=== PATIENT | female | born 1940 | race Caucasian/White ===

== ENCOUNTER 2016-12-07 13:29 | Inpatient (IN) | payer MEDICARE, OTHER ==
[~2016-12-07] VITALS: Ht 157.4 cm; Wt 87.1 kg
--- NOTE | ~2016-12-07 | PR ---
[place], [place] PROGRESS NOTE NAME: KAILA CULP UNIT #: [id number] ROOM: 316 DOCTOR: OTIS MARQUES MD BIRTHDATE: [birth year] DOS: 12/10/2016 INTERVAL NOTE CHIEF COMPLAINT: "Morning." SUMMARY OF THE VISIT: The patient was interviewed as she rested quietly in bed. She was pleasant and appropriate to me this morning. Nurses report that she had a fairly decent day, but as the evening progressed, she became much more confused, much more agitated and became verbally and physically aggressive, yelling out, constantly requiring p.r.n. intervention with good results. MENTAL STATUS EXAMINATION: This morning, she is alert and oriented to self, possibly place, but not time. Mood still is labile. Affect is still inappropriate at times. There is no gross mathew or psychosis noted at this point. Memory is very poor. PLAN: I will go ahead and order Ativan 1 mg p.o. at bedtime to head off some of this behavior to see if this can prevent it from occurring, may need to add a small dose of straight Ativan in the morning to sustain efficacy. Engage in individual and villasenor milieu activity, returning to [facility] when stable. OTIS MARQUES MD CM:PNTRANS [id number] OTIS MARQUES MD 12/11/16 0049 interface
--- NOTE | ~2016-12-07 | CON ---
[place], [place] REPORT OF CONSULTATION NAME: KAILA CULP [facility] #: [id number] UNIT #: [id number] ROOM: 316 DOCTOR: THAO WoodyTIM BIRTHDATE: [birth year] DOS: 12/09/2016 WOUND CARE CONSULTATION HISTORY OF PRESENT ILLNESS: This is a 76-year-old female with a history of bipolar disorder and dementia. The patient comes from a senior living and was admitted for a brief psychotic episode. She has a history of CVA and a PEG tube, but is also able to take p.o. She has had a nonhealing sacral wound for almost 2 years now. I got some information from her who I spoke to at length regarding the wound. Approximately 15 months ago, the patient had a surgical flap done, which failed and was dehisced after the sutures were removed and there was a postoperative infection. She has had associated osteomyelitis at least twice that he is aware of that, she has been treated with heavy antibiotics for 9 weeks at least 2 times, one time he is aware of MRSA infection. She has had debridement done in the past as well and antibiotics from what the patient states. I did ask her specifically if they have ever tried a wound VAC and she says they have tried it and it was not very successful and she believes at that time, she was in a state of agitation, so it is not quite clear why the VAC was discontinued, but it could have been that she was not cooperative with it. He does state that she is currently nonambulatory and in a bed most of the time, not even in a wheelchair secondary to the ulcer. She is supposed to have a wedge for offloading, but many times she has got into the room and she is not being offloaded, according to the patient's . Back in 2010, she had a severe CVA with left hemiparesis. During that time, she apparently improved quite a bit and was able to ambulate, but subsequently since then she has had become weaker and is now currently nonambulatory. She does have a history of anxiety. She has not had any recent physical therapy for some time, but has had some occupational therapy. She apparently sees a wound care doctor at the senior living who saw her approximately 3 weeks ago, who felt that they knew that the wound was deep, but it was according to the wound care doctor, slowly healing. The recalls the patient trying a trial of hyperbaric oxygen therapy, but due to her mental status and anxiety, she was unable to tolerate it. He is also researching some infrared treatments for wound care in the [place] area, but has not decided whether to pursue this avenue. PAST MEDICAL HISTORY: Significant for anxiety, bipolar disorder, C. diff colitis, chronic kidney disease stage 3, CVA, depression, hyperlipidemia, hypertension, neurogenic bladder, osteomyelitis, paranoid behavior, sacral decubitus ulcer stage 4, vascular dementia. She is status post PEG tube placement. She has also been in and out of multiple rehabilitation places, specifically for the ulcer, she recalls stay at [facility] for particular wound care that she is aware of. SOCIAL HISTORY: She does not drink or smoke. FAMILY HISTORY: Unknown. ALLERGIES: CLINDAMYCIN. CURRENT MEDICATIONS: That she has been ordered are as follows: Septra 1 tablet [place], [place] REPORT OF CONSULTATION NAME: KISHAUSMANKAILA D UNIT #: [id number] ROOM: [facility] DOCTOR: TIM OSUNA M.D. BIRTHDATE: [birth year] p.o. b.i.d.; Depakene 500 p.o. t.i.d. or through the PEG tube; MiraLax 17 grams Wednesday, Wednesday, Wednesday; Calazime b.i.d. topically; vitamin D 1000 units daily; thiamine 100 mg daily; Exelon 13.3 mg daily; Theragran 1 tablet daily; Plavix 75 daily; atenolol 50 mg b.i.d.; [place] 5/325 one tablet b.i.d.; clonidine 0.1 q. 8 hours; DuoNeb 3 mL q. 6 hours p.r.n.; acetaminophen 650 q. 4 hours p.r.n.; Namenda 10 mg p.o. b.i.d.; Nuedexta 20/10 mg p.o. b.i.d.; milk of magnesia p.o. q. 12 p.r.n.; Geodon 10 mg q. 4 hours IM p.r.n., Ativan 1 mg q. 4 hours p.r.n. REVIEW OF SYSTEMS: Unobtainable. She is currently on PEG tube feeding. PHYSICAL EXAMINATION: VITAL SIGNS: Her temperature is 99.3, pulse of 64, respirations 18, blood pressure is 132/62. GENERAL: This is an elderly female lying in bed, somewhat lethargic, in no acute distress. When asked specifically if she had any pain around her wound when we pressed on it, she did not complain of pain. She did, however, moan when we turned her over to examine the wound. NECK: There is no JVD. LUNGS: Clear to auscultation anteriorly. CARDIOVASCULAR: S1, S2, regular rate and rhythm. ABDOMEN: Soft. EXTREMITIES: She has no calf tenderness. SKIN: She has open wound on the sacral coccyx area. The wound is measuring 2 x 1 x 3.3 cm in depth. There is undermining and a tunnel. The undermining was noted to be more in the 6-9 o'clock position with a tunnel in the 6 o'clock position of almost 4 cm. I do not appreciate any cellulitis, purulence or odor at this time. LABORATORY DATA: Her white count is 9.6, hemoglobin is 14, platelets are 259,000. Sodium is 133, chloride is 94, BUN is 17, creatinine is 0.69. Albumin is 3, triglycerides are 159, cholesterol is 203. Urinalysis shows positive nitrites, 3+ leukocyte esterase, wbc's 16-20, 1+ bacteria. Urine cultures, heavy gram-negative bacilli. Apparently, wound culture was done as well, which showed many white blood cells and light gram-negative bacilli but nothing is coming up yet as far as the organism. ASSESSMENT AND PLAN: Chronic nonhealing stage 4 pressure ulcer in a patient, who is markedly immobile, debilitated. She has had what sounds like multiple courses of IV antibiotics for osteomyelitis. She has had surgical intervention, which has failed and continues to have a very large deep wound. I do not appreciate bone on examination actually; when probing the wound, I did not see or feel bone. However, she may have some chronic osteomyelitis present, which is contributing to poor wound healing. I would recommend trying to get an x-ray of the area if possible. If it can be done at the bedside that would be good and then they were using Aquacel AG ribbon to the wound base. I would continue with this for antibacterial purposes and have them use a foam on top of that and have them change it on a daily basis or every other day. Notes did mention that there was some purulent material noted. I did not see this; the drainage that was noted on her pad was clear serous. It does not appear to be acutely [place], [place] REPORT OF CONSULTATION NAME: KAILA CULP UNIT #: [id number] ROOM: 316 DOCTOR: TIM OSUNA M.D. BIRTHDATE: [birth year] infected clinically at this point. At some point, we may want to consider a wound VAC due to the depth of the wound; however, according to the , apparently wound VAC was tried in the past without success and the patient was somewhat agitated during this treatment. It is not clear if the wound VAC contributed to part of the agitation or due to her agitation. The wound VAC was difficult to place, not quite clear, but we may want to consider that in the future as a trial. I did speak to the and at this point, I would recommend just to continue with the current dressings that they have been using in the senior living and he may want to consider following up in the wound clinic on an outpatient basis. Thank you for this consult ADDENDUM I just wanted to mention that I spoke with the regarding the wound and my concern that it has been open for so long and the likelihood that it would heal with just standard wound care is slim. Surgical consultation with the plastic surgeon at some point may be appropriate and he seems to be aware of this. He did state that the wound care doctor that saw his recently felt that the wound was slowly healing. So, in the meantime, we will continue with the current orders for now. I did go ahead and order an x-ray to be done of the wound. It is difficult for me to say if this is healing or not; since this patient is unfamiliar to me. TIM OSUNA MD CM:CONSTR:REPORT OF CONSULTATION 1513 12/15/16 0924 interface
--- NOTE | ~2016-12-07 | PR ---
[place], [place] PROGRESS NOTE NAME: KAILA CULP UNIT #: [id number] ROOM: 316 DOCTOR: OTIS MARQUES MD BIRTHDATE: [birth year] DOS: 12/09/2016 INTERVAL NOTE CHIEF COMPLAINT: "Oh, is it breakfast time now." SUMMARY OF THE VISIT: The patient was interviewed in her room where she rested quietly in bed. She was awake as I entered the room and engaged in brief superficial conversation. She was pleasant and offered no complaints. She remains grossly confused; however, stating that she has been in the hospital for several weeks now. MENTAL STATUS EXAMINATION: This morning, she is alert and oriented to person, possibly place, certainly not time. Mood this morning was fairly euthymic, although nurses report, she continues to exhibit marked mood swings and crying out throughout the day. There was no overt mathew or hypomania noted. There are no overt delusions or paranoia noted. Short-term memory was exceedingly poor. PLAN: Her valproic acid level obtained yesterday morning, was therapeutic, but low least so at 62.7. I see no side effects from the Depakote itself, so go ahead and bring the dose from 250 mg twice daily and 500 mg at bedtime to a total of 500 mg 3 times daily. I will recheck another valproic acid level in 2 days to attempt to bring it in the range of about 80-90. We will continue to engage in individual and villasenor milieu activity with the ultimate plan to return back to [facility] in [place], [place]. OTIS MARQUES MD CM:PNTRANS [id number] [id number] OTIS MARQUES MD 12/10/16 0129 interface
--- NOTE | ~2016-12-07 | WRIGHTHP ---
[place], [place] PATIENT HISTORY AND PHYSICAL EXAM [id number] UNIT #: [id number] ROOM: 316 DOCTOR: OTIS MARQUES MD BIRTHDATE: [birth year] DOS: 12/07/2016 CHIEF COMPLAINT: "I don't know what I am doing here." HISTORY OF PRESENT ILLNESS: This is a 76-year-old white female known to me from her stay at [facility] in [place], [place]. The patient presents now with significant mood lability and agitation. She has been verbally and physically aggressive. She has been yelling out at times nonstop to the point of disrupting the entire villasenor milieu. Attempts to adjust her medications have been unsuccessful, and her behavior has escalated to the point where she is representing a significant risk of harm to self and others. She is admitted now to rule out organic factors and attempt to stabilize on medication. PAST MEDICAL HISTORY: Remarkable for a long history of bipolar disorder, chronic kidney disease stage 3A, CVA, hyperlipidemia, hypertension, neurogenic bladder, osteomyelitis, sacral decubiti stage 4, vascular dementia and a history of C. diff colitis. MENTAL STATUS: The patient is alert and oriented with significant mood gaps. Mood does seem to be labile. Her responses tended to be short and simple and at times inappropriate. She was rather labile at times. There was no overt auditory or visual hallucinations; however, there was no shahbaz mathew. Short term memory is exceedingly poor. DIAGNOSIS: Bipolar type 1, mixed. PLAN: I have started her on Depakote and maintained her on her Nuedexta for pseudobulbar affect. We will engage in individual and villasenor milieu activity with the ultimate plan to return back to [facility] when psychiatrically stable. OTIS MARQUES MD CM:HISPHYS:PATIENT HISTORY AND PHYSICAL EXAMINATION 9 9 OTIS MARQUES MD 12/08/16 08 interface
[2016-12-07] MEDS ORDERED: MIRALAX POWDER17 G1 PEG (13:32)
[2016-12-07] MEDS ORDERED: TYLENOL325 M1 PO (13:33)
[2016-12-07] MEDS ORDERED: RIVASTIGMINE TAR6 M1 PO (13:34)
[2016-12-07] MEDS ORDERED: NAMENDA-28 PO (13:36)
[2016-12-07] MEDS ORDERED: VITAMIN D1000 IU PO (13:37)
[2016-12-07] MEDS ORDERED: ATIVAN1 MG PO (13:40)
[2016-12-07] MEDS ORDERED: Haldol Concen2 MG/ML PO (13:42)
[2016-12-07] MEDS ORDERED: CEROVITE SENIOR1 TA1 PO (13:53)
[2016-12-07] MEDS ORDERED: ATENOLOL50 M1 PO (13:54)
[2016-12-07] MEDS ORDERED: PLAVIX75 M1 PO (13:55)
[2016-12-07] MEDS ORDERED: NATURE'S BLEND100 M2 PO (13:55)
[2016-12-07] MEDS ORDERED: NORCO 5-325 TA1 EACH PO (13:56)
[2016-12-07] MEDS ORDERED: DEPAKENE250 MG/5 M PEG (13:59)
[2016-12-07] MEDS ORDERED: ARGIMENT POWDE1 EACH PEG (14:01)
[2016-12-07] MEDS ORDERED: CLONIDINE0.2 MG PO (14:03)
[2016-12-07] MEDS ORDERED: DUONEB 3 MG/3 ML3 M1 INH (14:04)
[2016-12-07 21:25] VITALS: BP 157/63
[2016-12-07 22:30] VITALS: BP 157/63
[2016-12-08 01:44] LABS: BILIRUBIN NEGATIVE (NEGATIVE); BLOOD TRACE-INTACT (NEGATIVE); CLARITY CLEAR (CLEAR); COLOR YELLOW (YELLOW); GLUCOSE NEGATIVE (NEGATIVE); KETONE NEGATIVE (NEGATIVE); LEUKO ESTERASE 3+ (NEGATIVE); NITRITE POSITIVE (NEGATIVE); PROTEIN NEGATIVE (NEGATIVE); SPECIFIC GRAVITY <= 1.005 (1.005-1.030); UROBILINOGEN 0.2 E.U./dl (0.2-1.0)
[2016-12-08 01:54] LABS: BACTERIA 1+; URINE REFLEX COMMENT YES (NO); WBC 16-20 wbc/hpf (0-5)
[2016-12-08 06:49] LABS: BASO # 0.1 10*3/uL (0.0-0.1); BASO % 0.5 % (0.0-1.0); EOS # 0.2 10*3/uL (0.0-0.4); EOS % 1.7 % (1.0-4.0); HEMATOCRIT 42.6 % (37.0-47.0); HEMOGLOBIN 14.5 g/dl (12.0-16.0); IG # 0.3 10*3/uL (0.0-0.1); LYMPH # 2.8 10*3/uL (1.3-4.4); LYMPH % 29.2 % (27.0-41.0); MEAN CELL VOLUME 91.2 fl (81.0-99.0); MEAN PLATELET VOLUME 9.3 fl (9.6-12.3); MONO # 1.2 10*3/uL (0.1-1.0); MONO % 12.6 % (3.0-9.0); NEUT # 5.1 10*3/uL (2.3-7.9); NEUT % 53.4 % (47.0-73.0); PLATELET COUNT AUTOMATED 259 10*3/uL (130-400); RED BLOOD COUNT 4.67 10*6/uL (4.10-5.10); WHITE BLOOD COUNT 9.6 10*3/uL (4.8-10.8)
[2016-12-08 07:26] LABS: ALKALINE PHOSPHATASE 79 U/L (45-117); BILIRUBIN, TOTAL 0.4 mg/dl (0.2-1.0); BUN 17 mg/dl (7-24); CARBON DIOXIDE 30 mmol/L (21-32); CHLORIDE 94 mmol/L (98-107); CHOLESTEROL 203 mg/dL (<200); EST GLOM FILT AFRICAN AMERICAN > 60 ml/min; GLUCOSE 72 mg/dL (65-99); HDL CHOLESTEROL 63 mg/dl (40-60); LDL CHOLESTEROL 108 mg/dL (9-159); POTASSIUM 4.2 mmol/L (3.5-5.1); SGOT/AST 14 IU/L (3-35); SGPT/ALT 10 U/L (12-78); SODIUM 133 mmol/L (136-145); TRIGLYCERIDES 159 mg/dl (<150); VLDL CHOLESTEROL 32 mg/dL (6-40)
[2016-12-08 08:00] VITALS: BP 139/67
[2016-12-08 08:21] LABS: VITAMIN D, 25-HYDROXY 32.9 ng/mL (30-100)
[2016-12-08 20:00] VITALS: BP 138/78
[2016-12-09 08:16] VITALS: BP 132/62
[2016-12-09 19:40] VITALS: BP 140/72
[2016-12-10 07:25] VITALS: BP 102/51
[2016-12-10 07:45] LABS: HEMATOCRIT 43.8 % (37.0-47.0); HEMOGLOBIN 14.1 g/dl (12.0-16.0); MEAN CELL VOLUME 95.4 fl (81.0-99.0); MEAN CORPUSCULAR HGB 30.7 pg (27.0-31.0); MEAN CORPUSCULAR HGB CONC 32.2 g/dl (33.0-37.0); MEAN PLATELET VOLUME 9.1 fl (9.6-12.3); PLATELET COUNT AUTOMATED 295 10*3/uL (130-400); RED BLOOD COUNT 4.59 10*6/uL (4.10-5.10); RED CELL DISTRI WIDTH 13.2 % (0-14.5); WHITE BLOOD COUNT 11.3 10*3/uL (4.8-10.8)
[2016-12-10 08:15] LABS: LYMPHOCYTE # 3.5 10*3/uL (1.3-4.4); METAMYELOCYTES 2 % (0-0); MONOCYTE # 0.7 10*3/uL (0.1-1.0); MYELOCYTES 3 % (0-0); NEUTROPHIL # 6.6 10*3/uL (2.3-7.9); NEUTROPHILS 58 % (47-73); PLATELET SUFFICIENCY NORMAL (NORMAL); TOTAL CELLS COUNTED 100 #CELLS
[2016-12-10 08:25] LABS: CARBON DIOXIDE 30 mmol/L (21-32); CHLORIDE 97 mmol/L (98-107); GLUCOSE 132 mg/dL (65-99); POTASSIUM 3.6 mmol/L (3.5-5.1); SODIUM 137 mmol/L (136-145)
[2016-12-10 08:28] LABS: BUN 25 mg/dl (7-24); EST GLOM FILT AFRICAN AMERICAN > 60 ml/min
[2016-12-10 09:00] VITALS: BP 108/58
[2016-12-10] MEDS ORDERED: CLONIDINE HCL0.1 MG PO ×2 (11:06→13:30)
[2016-12-10] MEDS ORDERED: SMZ-TMP 400 MG-1 TAB PO (11:36)
[2016-12-10] MEDS ORDERED: EXEL13.31 T ×2 (11:47→13:31)
[2016-12-10] MEDS ORDERED: DEPAKENE250 MG/5 M PO (11:53)
[2016-12-10] MEDS ORDERED: ATIVAN1 MG PO ×2 (11:54→13:32)
[2016-12-10] MEDS ORDERED: NAMENDA10 MG PO (11:55)
[2016-12-10] MEDS ORDERED: NEUDEXT PEG ×2 (11:58→13:34)
[2016-12-10] MEDS ORDERED: DEPAKENE S250 MG/5 M PO ×2 (12:00→13:35)
[2016-12-10] MEDS ORDERED: BACTRIM 400 MG-1 TAB PO (13:19)
[2016-12-10] MEDS ORDERED: POLYETHYLE17 GM/Dose PO (13:20)
[2016-12-10] MEDS ORDERED: VITAMIN D1000 IU PO (13:21)
[2016-12-10] MEDS ORDERED: ACETAMINOPHEN325 M2 PO (13:21)
[2016-12-10] MEDS ORDERED: CEROVITE SENIOR1 TA1 PO (13:22)
[2016-12-10] MEDS ORDERED: ATENOLOL50 M1 PO (13:23)
[2016-12-10] MEDS ORDERED: CLOPIDOGREL75 MG PO (13:23)
[2016-12-10] MEDS ORDERED: NATURE'S BLEND100 M2 PO (13:24)
[2016-12-10] MEDS ORDERED: HYDROCODONE BIT1 T11 PO (13:24)
[2016-12-10] MEDS ORDERED: DUONEB 3 MG/3 ML3 M1 INH (13:27)
[2016-12-10] MEDS ORDERED: MEMANTINE HCL10 MG PO (13:33)
== END 2016-12-10 12:10 | disposition short-term general hospital (02) | DRG 885 ==
LOC: 3N 13:29
PROVIDERS: Internal Medicine; Psychiatry & Neurology Psychiatry
DX: F31.9 Bipolar disorder, unspecified (principal); L89.154 Pressure ulcer of sacral region, stage 4; E46 Unspecified protein-calorie malnutrition; F01.51 Vascular dementia, unspecified severity, with behavioral disturbance; E67.8 Other specified hyperalimentation; E87.1 Hypo-osmolality and hyponatremia; N18.3 Chronic kidney disease, stage 3 (moderate); M86.60 Other chronic osteomyelitis, unspecified site; F23 Brief psychotic disorder; N30.01 Acute cystitis with hematuria; F41.9 Anxiety disorder, unspecified; F22 Delusional disorders; N31.9 Neuromuscular dysfunction of bladder, unspecified; I12.9 Hypertensive chronic kidney disease with stage 1 through stage 4 chronic kidney disease, or unspecified chronic kidney disease; E78.5 Hyperlipidemia, unspecified; F01.50 Vascular dementia, unspecified severity, without behavioral disturbance, psychotic disturbance, mood disturbance, and anxiety; Z88.1 Allergy status to other antibiotic agents; Z79.899 Other long term (current) drug therapy; Z86.73 Personal history of transient ischemic attack (TIA), and cerebral infarction without residual deficits; Z68.36 Body mass index [BMI] 36.0-36.9, adult

== ENCOUNTER 2016-12-13 11:12 | Inpatient (IN) | payer MEDICARE, OTHER ==
--- NOTE | ~2016-12-13 | PR ---
[place], [place] PROGRESS NOTE [id number] UN[facility] #: [id number] ROOM: 316 DOCTOR: EVELYNE CUNNINGHAM BIRTHDATE: [birth year] DOS: 12/17/2016 SUMMARY OF VISIT: The patient was assessed in her room where she was lying in bed, sleeping. She just received her vital signs, which were within normal limits. The patient continues to have pain in the coccyx area, sacral area, limited conversation again in the morning, talking to the villasenor milieu, she does become more alert, oriented throughout the late morning, afternoon and even though sometimes she is sleeping in her chair, she readily awakes, is bright, engages in conversation. MENTAL STATUS: She is alert and oriented to person, place, I do not know about time. Mood trending towards euthymic, still on the depressed side and still having the chronic pain issues. No overt signs of auditory or visual hallucinations, delusions or paranoia, mathew, or hypomania. PLAN: I am going to go ahead and bump up per Dr. Ramirez's notes from 2 days ago her Cymbalta. The goal is to eventually gradually increase her to 90 to 120 mg total every day to maximize the benefits of relieving her pain, decreasing anxiety, improving her mood, so I will change her Cymbalta to 30 mg in the morning and 60 mg at night and see how she does on this new dose. Will continue to engage in individual and villasenor milieu therapy with the plan to discharge once stable. TERRY CUNNINGHAM CNP CM:PNTRANS [id number] EVELYNE CUNNINGHAM 12/17/16 2318 interface
--- NOTE | ~2016-12-13 | PR ---
[place], [place] PROGRESS NOTE [id number] #: [id number] ROOM: 316 DOCTOR: EVELYNE CUNNINGHAM BIRTHDATE: [birth year] DOS: 12/16/2016 CHIEF COMPLAINT: "Oh god." SUMMARY OF VISIT: The patient was assessed in her room where she was lying in bed. She had her eyes closed initially, I introduced myself, she did not open her eyes, I continued talking. Once I said name, she said, "oh god," but not in a painful way, just like what she wanted. I can see from nurses' notes that she refused to keep the wedge underneath her last night. She kept moving herself back on to her back being that she has sacral issues. MENTAL STATUS: She is alert and oriented to person, place. I do not know about time. Mood, I would say it is still depressed, still having some chronic pain issues. There is no mathew or hypomania. No overt signs of auditory or visual hallucinations, delusions or paranoia. PLAN: Dr. Ramirez increased her Cymbalta yesterday. I want to see how she does over the next 24 hours and then I will continue to titrate that up. His note does state that the goal is to bring the dose gradually up to the 90-120 mg every day and to maximize the benefits of relieving pain, decreasing anxiety, improving her mood. Let me see how she does over the next 24 hours and I will plan bumping up her Cymbalta tomorrow. We will try to engage in individual and villasenor milieu therapy with the plan to discharge when stable. TERRY CUNNINGHAM CNP CM:PNOTTO 2337 EVELYNE CUNNINGHAM 12/16/16 2338 interface
--- NOTE | ~2016-12-13 | WRIGHTHP ---
[place], [place] PATIENT HISTORY AND PHYSICAL EXAM NAME: [facility]ULP [id number] UNIT #: [id number] ROOM: 316 DOCTOR: OTIS MARQUES MD BIRTHDATE: [birth year] DOS: 12/14/2016 CHIEF COMPLAINT: "I don't know, when do I get to go home." SUMMARY OF THE VISIT: The patient was interviewed as she rested quietly in bed. HISTORY OF PRESENT ILLNESS: This is a 76-year-old female known to me from [facility] in [place], [place] as well as several admissions here to the [facility]. She had initially presented to the hospital with a great mood lability and agitation. She had been verbally and physically aggressive, yelling out nonstop at times to the point, where she was disruptive to the entire villasenor milieu. Attempts to adjust her medications were unsuccessful and she was ultimately admitted here to the [facility] for further evaluation; however, the patient upon admission was found to have a significant UTI as well as an infected decubiti that also resulted in osteomyelitis of the sacrum. Because of this, she was transferred briefly to the medical floor for further stabilization. However, while on the medical floor, she continued to yell out and was very disruptive there, so it was felt that a further psychiatric evaluation was warranted. PAST MEDICAL HISTORY: Remarkable for a long history of bipolar disorder, chronic kidney disease stage 3, CVA, hyperlipidemia, hypertension, neurogenic bladder, osteomyelitis, sacral decubiti, stage 4, vascular dementia and a history of C. diff colitis. MENTAL STATUS EXAMINATION: This morning, the patient is alert and oriented to person, possibly place, but not time. Mood actually was fairly bright, and she was minimizing of all symptoms this morning; however, she does have these episodes of extreme mood lability and agitation that occur periodically and without warning. There was no mathew or hypomania at the point of my evaluation this morning, nor was there any auditory or visual hallucinations. Short-term memory was poor, otherwise she was intact. DIAGNOSIS: Bipolar type 1, mixed, and vascular dementia. PLAN: I will go ahead and discontinue her Nuedexta and start her on Cymbalta 30 mg at bedtime. Given the severity of her decubiti, I do question whether pain is behind some of her yelling out, although when questioned about it this morning, she minimized pain and stated that she was fine. I will plan to bring the Cymbalta up to a dose in the range of 60-120. Valproic acid level is barely therapeutic at 58.2, may need to adjust this accordingly. We will attempt to engage her in individual and villasenor milieu activity with the ultimate plan to send back to [facility] when stable. [place], [place] PATIENT HISTORY AND PHYSICAL EXAM NAME: KISHAUSMANKAILA D UNIT #: [id number] ROOM: [facility] DOCTOR: OTIS MARQUES MD BIRTHDATE: [birth year] OTIS MARQUES MD CM:HISPHYS:PATIENT HISTORY AND PHYSICAL EXAMINATION 6 3 OTIS MARQUES MD 12/14/1634 interface
--- NOTE | ~2016-12-13 | PR ---
[place], [place] PROGRESS NOTE NAME: KAILA CULP [facility] #: [id number] UNIT #: [id number] ROOM: 316 DOCTOR: THAO WoodyTIM BIRTHDATE: [birth year] DOS: 12/14/2016 SUBJECTIVE: I was asked to see the patient again regarding wound care orders, the patient was just discharged from the medical floor back to [facility] for further stabilization. The patient had been initially seen at [facility], then was transferred to the medical floor for concerns of her sacral stage IV ulceration and urinary tract infection. She was seen both by Infectious Disease, Orthopedics, as well as General Surgery. Imaging studies of the CT pelvis was possible abscess formation distal coccyx, distal tip focal bone lysis with adjacent phlegmonous inflammatory mass, possible abscess formation. It was felt at that time, the patient was not a surgical candidate. Her ulcer remains quite large and complicated. Conservative treatment with antibiotics per Infectious Disease was recommended as well as local wound care. It was also mentioned that on several occasions, the patient was noted to have stool contaminating the periwound area and the staff does report this; she has had multiple bouts of loose stool. Apparently, was given MiraLax for constipation. So this definitely remains a challenge. The staff also reports that she despite being turned on the side that the patient goes back continually, wants to lay back her on her back side. Even with the wedge, which helps prevent turning completely supine, she still seems to be putting pressure on that area. Since the patient was transferred back to [facility], she is apparently not complaining of any pain at the present time. According to the staff, she does not mention any specific complaint of pain near the wound. She remains to be a total care for all of her ADLs. She is a Chayo lift when the patient is moving out of the bed and is not felt to be a candidate for OT. The patient currently is lying in bed in no acute distress. When asked specifically if she has any pain, she denies any pain at the present time. PHYSICAL EXAMINATION: VITAL SIGNS: Her temperature is 98.4, pulse of 94, respirations 20, blood pressure is 122/57. BACK: The patient was turned over with the help of staff and had right below the dressing, there was fecal incontinence noted. This was wiped away before the packing was removed. The packing was removed and there is some bloody drainage noted. The base of the wound looks fairly clean; however, the wound margins are definitely seem to be bigger according to my measurements. The depth appears to be about 5 cm and there is undermining pretty much throughout 3-12 o'clock position. There is a large undermined area tunnel noted at the 4-5 o'clock position that goes down about 6 cm almost. The patient had a white count of 13.8, a hemoglobin of 14, and platelets of 315. BUN was 28, creatinine is 1.27. ASSESSMENT AND PLAN: Stage IV pressure ulcer, which definitely appears to be worsening as far as the margins go. There is increased bloody drainage. There is no obvious odor or cellulitis noted. I am concerned about the increasing margins of the wound, which I believe are multifactorial. Specifically, the patient does not seem to be keeping pressure off of the area, despite being positioned on her side. Everytime I have gone into see her, she has been on her backside, so she does turn herself over. Even with the wedge, it is not preventing her from going back on her backside. There is stool incontinence, which may be contributing to contamination. There is concern of possible [place], [place] PROGRESS NOTE NAME: KAILA CULP UNIT #: [id number] ROOM: [facility] DOCTOR: TIM OSUNA M.D. BIRTHDATE: [birth year] ongoing chronic osteomyelitis, possible inflammatory process versus abscess noted on CT scan, which is also contributing to poor wound healing. Offloading is definitely a challenge as well. Despite orders to not have any direct pressure to the wound, everytime I have gone in to see the patient, she has been completely on her backside. Even with the wedge, which has always been there, it is not preventing her from putting direct pressure on this wound, so this is definitely a challenge. Other support services may be considered; however, I think are limited on what can be provided in the U unit so I can discuss with a staff regarding if there are any other support services that can be requested for her; however, in the past was told that no other support services are available on the U unit. Ideally, would recommend an air fluidized bed if available. I believe that this is not available on the [facility] nor have I seen it being utilized in this hospital. TIM OSUNA MD CM:PNTRANS 1514 1030 TIM OSUNA M.D. 12/15/16 1141 interface
--- NOTE | ~2016-12-13 | PR ---
[place], [place] PROGRESS NOTE NAME[id number] UNIT #: [id number] ROOM: 316 DOCTOR: OTIS MARQUES MD BIRTHDATE: [birth year] DOS: 12/15/2016 CHIEF COMPLAINT: "Good morning." SUMMARY OF THE VISIT: The patient was interviewed as she rested quietly in bed. She was not yelling out or moaning in anyway. As I approached, she was awake and she engaged in eye contact and also wished me good morning. She minimized any issues, stating that she was not in pain, and that she had slept well and was ready for breakfast. Nurses report that overall there has been less mood lability and left yelling out. MENTAL STATUS: She is alert and oriented to self, place, but not time. Mood still does seem to be somewhat depressed, and there is some anxious overtones. She does tend to minimize overall. There is no hypomania or mathew. There are no overt auditory or visual hallucinations. No delusions, no paranoia are present. Short-term memory has gaps, otherwise she is intact. PLAN: I will increase her Cymbalta from 30 mg at nighttime to 30 mg twice daily. I will attempt to bring the dose gradually to a dose range of 90-120 mg daily to attempt to get maximum benefit in relieving pain, decreasing anxiety and improving mood. When stable, we will discharge her back to [facility]. OTIS MARQUES MD CM:PNTRANS [phone] OTIS MARQUES MD 12/16/16 0139 interface
--- NOTE | ~2016-12-13 | DS ---
[place], [place] DISCHARGE SUMMARY [id number] UNIT #: [id number] ROOM: 316 DOCTOR: OTIS MARQUES MD BIRTHDATE: [birth year] DOS: 12/18/2016 CHIEF COMPLAINT: "I do not know when do I get to go home." HISTORY OF PRESENT ILLNESS: This is a 76-year-old white female known to me from her stay at [facility] in [place], [place] as well as several admissions here to the [facility]. She had initially presented to the Behavioral Healthcare unit with a great deal of mood lability and agitation. She had been yelling out almost nonstop through day and night disrupting the entire villasenor milieu. She was verbally and physically aggressive to other patients and staff. Attempts to adjust her medicines while at the long-term care facility were unsuccessful and she was ultimately admitted to the U for further evaluation and stabilization; however, upon admission, she was found to have a significant UTI as well as an infected decubiti resulting in osteomyelitis of the sacrum. Because this began to deteriorate, it was felt that she required inpatient medical stabilization first and she was sent to the medical floor for further stabilization. While on the medical floor, her psychiatric symptomatology continued to flourish and she was wildly labile, yelling nonstop, requiring frequent PRNs. Once medically stabilized, it was felt that further psychiatric intervention was warranted and she was brought back to the U. PAST MEDICAL HISTORY: Remarkable for a long history of bipolar disorder, chronic kidney disease stage 3, CVA, hyperlipidemia, hypertension, neurogenic bladder, osteomyelitis, a stage 4 sacral decubiti vascular dementia and a recent history of C. diff. SUMMARY OF THE HOSPITAL COURSE: The patient was readmitted to the Behavioral Health Care Unit. At this point, her Nuedexta was discontinued due to ineffectiveness and she was started on Cymbalta 30 mg at bedtime. Nursing did believe that much of her yelling out was pain related even though the patient herself consistently reported no pain. Nurses reported that her yelling seem to pea and flow around periods of care or when she seemed to be very distraught because of her overall pain level. Cymbalta was initiated at a dose of 30 mg at night, increased to 60 mg at night and then subsequently stabilized out at 30 mg in the morning and 60 mg at night. With this medication, the patient did seem to improve and her overall disposition brightened. She was sleeping much better, eating much better and was able to engage in meaningful conversation without these long periods of yelling and without exhibiting mood lability. She tolerated the Cymbalta well. There was no sedation, somnolence, or any other side effects noted. The patient had improved sufficiently from a psychiatric standpoint to return back to [facility] where I will follow her upon her return there. FINAL DIAGNOSES: Major depression, recurrent and vascular dementia. MENTAL STATUS AT DISCHARGE: The patient was alert and oriented to person, possibly place, not necessarily time. Mood was strongly trending towards euthymia. Affect was much more appropriate. There is no hypomania or mathew. There are no auditory or visual hallucinations. No delusions, no paranoia was present. Short term memory had significant gaps, otherwise long-term and [place], [place] DISCHARGE SUMMARY NAME: KAILA CULP UNIT #: [id number] ROOM: [facility] DOCTOR: OTIS MARQUES MD BIRTHDATE: [birth year] intermediate were intact. DISPOSITION: The patient is returning to [facility]. I will follow her upon her return there and see her within a week. OTIS MARQUES MD CM:ARACELY [phone] OTIS MARQUES MD 12/18/16 1628 interface
--- NOTE | ~2016-12-13 | PR ---
[place], [place] PROGRESS NOTE NAME: [id number] UNIT #: [id number] ROOM: 316 DOCTOR: THAO WoodyTIM BIRTHDATE: [birth year] DOS: 12/16/2016 WOUND CARE FOLLOWUP Staff reports that the patient does not complain of any pain with the wound unless the dressing is being changed. She does complain during the dressing changes of when she is being turned over mostly. Apparently plans are for her to go back to the senior care. OBJECTIVE: VITAL SIGNS: However, she is afebrile, pulse is 56, respirations 16, blood pressure is 130/90, pulse ox is 97%. ASSESSMENT AND PLAN: The patient is lying completely flat on her back side again, on her bed. She is pleasant during the initial interview, but as soon as we turned her over for dressing change. Seems uncomfortable and is requesting to go back on her backside as soon as she cannot. The dressing was removed. The foam was in place. There was sanguinous drainage. There was noted a slight odor was present during this exam. I did not notice it before, but it does seem present presently, though depth remains quite deep. In various areas, it measures 4, but if she moves the Q-tip just a little bit to the side, it can go down to 5 cm. There is a undermined area and tunnels at the 4 o'clock position to almost 6 cm. The area was cleansed with a Dakin solution dressing was applied, it was the equivalent of the Aquacel Ag, but staff did report that sometimes that has not been available and they have just been using plain Maxsorb. No recent labs are available. ASSESSMENT AND PLAN: Stage 4 pressure ulcer that has definitely worsened since she first got here. There are signs of bacterial infection with increasing wound margins as well as some odor present during dressing changes. I would continue with the silver dressing as that is what we have available, I would also continue with Dakin, which we just started for cleansing the wound. For now she is going to be discharged to the senior care and hopefully they will have a more suitable offloading mattress for her. I think air fluidized mattress should be considered and tried, if available, so for now, we will discontinue with Dakin solution and the silver dressing to pack the wound, I would also consider trying to switch to a different dressing such as Hydrofera Blue; however, we do not have that available here at this facility, but that might be something to be considered while she is in the senior care. Other options include Iodosorb for antibacterial purposes and an alginate to help absorb wound fluid, but I would definitely keep it covered as before and have the dressings continue to be changed every day. [place], [place] PROGRESS NOTE NAME: KAILA CULP UNIT #: [id number] ROOM: [facility] DOCTOR: TIM OSUNA M.D. BIRTHDATE: [birth year] TIM OSUNA MD CM:PNOTTO [id number] TIM OSUNA M.D. 12/22/16 0808 interface
[~2016-12-13 11:12] MED LIST: ACETAMINOPHEN325 M2 PO; ARGIMENT POWDE1 EACH PEG; ATENOLOL50 M1 PO; ATIVAN1 MG PO; BACTRIM 400 MG-1 TAB PO; CEROVITE SENIOR1 TA1 PO; CLONIDINE HCL0.1 MG PO; CLONIDINE0.2 MG PO; CLOPIDOGREL75 MG PO; DEPAKENE S250 MG/5 M PO; DEPAKENE250 MG/5 M PEG; DEPAKENE250 MG/5 M PO; DUONEB 3 MG/3 ML3 M1 INH; EXEL13.31 T; HYDROCODONE BIT1 T11 PO; Haldol Concen2 MG/ML PO; MEMANTINE HCL10 MG PO; MIRALAX POWDER17 G1 PEG; NAMENDA-28 PO; NAMENDA10 MG PO; NATURE'S BLEND100 M2 PO; NEUDEXT PEG; NORCO 5-325 TA1 EACH PO; PLAVIX75 M1 PO; POLYETHYLE17 GM/Dose PO; RIVASTIGMINE TAR6 M1 PO; SMZ-TMP 400 MG-1 TAB PO; TYLENOL325 M1 PO; VITAMIN D1000 IU PO
[2016-12-13] MEDS ORDERED: CIPROFLOXACIN500 M4 PEG (11:14)
[2016-12-13 16:22] VITALS: BP 142/78
[2016-12-13 16:45] VITALS: BP 142/78
[2016-12-14 07:44] VITALS: BP 122/57
[2016-12-14 08:04] LABS: THYROID STIM HORMONE (HS) 3.11 uIU/ml (0.358-4.75)
[2016-12-14 10:46] LABS: VITAMIN D, 25-HYDROXY 34.3 ng/mL (30-100)
[2016-12-14 21:05] VITALS: BP 122/50
[2016-12-15 07:51] VITALS: BP 140/58
[2016-12-15 20:00] VITALS: BP 110/58
[2016-12-16 07:39] VITALS: BP 130/90
[2016-12-16 20:00] VITALS: BP 138/62
[2016-12-17 08:00] VITALS: BP 130/90
[2016-12-17 09:56] VITALS: BP 135/52
[2016-12-17 20:00] VITALS: BP 118/62
[2016-12-18 07:38] VITALS: BP 142/91
[2016-12-18] MEDS ORDERED: DULOXETINE HCL30 MG PO (08:29)
[2016-12-18] MEDS ORDERED: EXELON13.3 MG/21 T (08:29)
[2016-12-18] MEDS ORDERED: LORAZEPAM1 MG PO (08:29)
[2016-12-18] MEDS ORDERED: DULOXETINE HCL60 MG PO (08:29)
[2016-12-18] MEDS ORDERED: DEPAKENE S250 MG/5 M PO (08:29)
[2016-12-18] MEDS ORDERED: MEMANTINE HCL10 MG PO (08:29)
== END 2016-12-18 15:08 | DRG 885 ==
LOC: 3N 11:12
PROVIDERS: Psychiatry & Neurology Psychiatry
DX: F33.9 Major depressive disorder, recurrent, unspecified (principal); L89.154 Pressure ulcer of sacral region, stage 4; E46 Unspecified protein-calorie malnutrition; N18.3 Chronic kidney disease, stage 3 (moderate); F01.51 Vascular dementia, unspecified severity, with behavioral disturbance; F23 Brief psychotic disorder; E78.5 Hyperlipidemia, unspecified; F41.9 Anxiety disorder, unspecified; I12.9 Hypertensive chronic kidney disease with stage 1 through stage 4 chronic kidney disease, or unspecified chronic kidney disease; E66.9 Obesity, unspecified; N31.9 Neuromuscular dysfunction of bladder, unspecified; Z86.73 Personal history of transient ischemic attack (TIA), and cerebral infarction without residual deficits; Z88.1 Allergy status to other antibiotic agents

== ENCOUNTER 2017-05-18 15:55 | Inpatient (IN) | payer MEDICARE ==
[~2017-05-18] VITALS: Ht 157.4 cm; Wt 88.9 kg
--- NOTE | ~2017-05-18 | WRIGHTHP ---
[place], [place] PATIENT HISTORY AND PHYSICAL EXAM NAME[id number] UN[facility] #: [id number] ROOM: 317 DOCTOR: OTIS MARQUES MD BIRTHDATE: [birth year] DOS: 05/19/2017 CHIEF COMPLAINT: "Oh, good morning." HISTORY OF PRESENT ILLNESS: This is a 76-year-old white female known to me from her stay at [facility] in [place], [place] as well as a previous psychiatric admission here to the [facility]. The patient is readmitted now. After her last psychiatric admission, she returned to the facility. She did develop medical complications requiring hospitalization at which time, all of her psychotropic medications were stopped. Once she was medically stabilized, she was sent back to [place], but because of the discontinuation of her psychiatric medications, the patient dramatically decompensated. She has now been yelling out constantly. She will yell out "help me, help me, help me." She does not redirect. She has been extremely disruptive to the entire villasenor milieu. Efforts to attempt to restabilize her on medications while at the [facility] have been unsuccessful and her behaviors have continued to escalate, putting herself and others at risk for harm. She is admitted now to rule out organic factors, to stabilize on medication, ultimately returning back to [facility] when psychiatrically stable. PAST MEDICAL HISTORY: Remarkable for recent history of C. diff as well as a history of bipolar disorder, chronic kidney disease stage 3, CVA, hyperlipidemia, hypertension, neurogenic bladder, obesity, osteomyelitis, protein calorie malnutrition, sacral decubiti stage 4 and vascular dementia. MENTAL STATUS: The patient is alert and at least oriented to self. She gave very short and simple responses and at times did not engage despite the questions being asked of her. She did seem pleasant. At no point in time was she agitated nor at any point in time was she yelling out. My mental status is limited due to her lack of participation. DIAGNOSIS: Major depression, recurrent with psychotic features. PLAN: The patient has been started on Seroquel 50 mg twice daily. I will increase this dose to 50 mg 4 times daily to offer both mood stabilizing properties as well as antianxiety properties. I have started Remeron 15 mg at bedtime as an antidepressant, have also maintained her on Exelon patch but will increase the dose from 4.6 mg daily to 9.5 mg daily. Of note, despite the fact that the patient has a negative C. diff obtained on 05/18/2017, hospital protocol suggests that she be transferred to a medical floor for further stabilization. Hospitalists have been consulted at this point in time and we will defer to their expertise. [place], [place] PATIENT HISTORY AND PHYSICAL EXAM NAME: KAILA CULP [place] UNIT #: [id number] ROOM: 317 DOCTOR: OTIS MARQUES MD BIRTHDATE: [birth year] OTIS MARQUES MD CM:HISPHYS:PATIENT HISTORY AND PHYSICAL EXAMINATION [id number] OTIS MARQUES MD 05/19/17 1103 interface
[~2017-05-18 15:55] MED LIST changes: +CIPROFLOXACIN500 M4 PEG; +CLONIDINE HCL0.1 MG GT; +CLOPIDOGREL75 MG GT; -CLOPIDOGREL75 MG PO; +DULOXETINE HCL30 MG PO; +DULOXETINE HCL60 MG PO; +EXELON13.3 MG/21 T; +LORAZEPAM1 MG PO; +MEMANTINE HCL10 MG GT; +NATURE'S BLEND100 M2 GT; -POLYETHYLE17 GM/Dose PO; +POLYETHYLENE GLY1 G1 GT; +VITAMIN D31000 UNI1 GT
[2017-05-18] MEDS ORDERED: GOOD NEIGHBOR650 MG PO (18:35)
[2017-05-18] MEDS ORDERED: VALPROIC ACI50 MG/ML PO (18:36)
[2017-05-18] MEDS ORDERED: FISH OIL 500 M1 EAC1 GT (18:38)
[2017-05-18] MEDS ORDERED: ZYPREXA2.5 MG PO (18:41)
[2017-05-18] MEDS ORDERED: PAXIL20 M1 PO (18:42)
[2017-05-18] MEDS ORDERED: VISTARIL50 MG GT (18:44)
[2017-05-18] MEDS ORDERED: NORCO 5-325 TA1 EACH GT (18:52)
[2017-05-18] MEDS ORDERED: GOOD NEIGHBOR M25 M1 GT (18:55)
[2017-05-18] MEDS ORDERED: SIMVASTATIN40 MG PO (19:00)
[2017-05-18] MEDS ORDERED: PROTONIX40 M2 GT (19:01)
[2017-05-18] MEDS ORDERED: K-EFFERVESCENT25 MEQ GT (19:04)
[2017-05-18] MEDS ORDERED: MULTIVITAMINS1 EAC5 GT (19:06)
[2017-05-18] MEDS ORDERED: FEROSUL220 MG/51 GT (19:07)
[2017-05-18] MEDS ORDERED: KEPPRA100 MG/1 M GT (19:08)
[2017-05-18] MEDS ORDERED: METOPROLOL25 MG GT (19:09)
[2017-05-18] MEDS ORDERED: EXELON1 EACH T (19:10)
--- NOTE | 2017-05-18 19:45 | NUR ---
KAILA CULP a 76 year old F admitted via stretcher from the ADMITTING as a voluntary admission. Arrived on unit at 1945. ALLERGIES: CLINDAMYCIN. Vital signs are: 98.0-68-18 142/74. The client signed the following forms with stated understanding: Authorization For The Release of Medical Information, Clothing List, Consent to Voluntary Admission and Hospitalization, Consent and Release Forms/Receipt of Rights, Acknowledgement of Advance Directive Information, Behavioral Health Consent Form, and Informed Consent of Medications. [facility] A search was conducted and hazardous articles were removed. Client was oriented to the unit. REJI MATTHEWS
[2017-05-18 20:32] VITALS: BP 142/74
--- NOTE | 2017-05-18 20:50 | NUR ---
DR. ANDERSEN CALLED AND PATIENT PLACED UNDER DR. WHITEHEAD FOR MEDICAL MANAGEMENT
--- NOTE | 2017-05-18 21:29 | NUR ---
DR. ANDERSEN ON UNIT TO SEE PATIENT. ORDERS FOR CBC AND CMP AT THIS TIME INSTEAD OF IN THE MORNING AND TO OBTAIN URINE
[2017-05-18 22:01] LABS: HEMATOCRIT 38.3 % (37.0-47.0); HEMOGLOBIN 12.4 g/dl (12.0-16.0); MEAN CELL VOLUME 94.6 fl (81.0-99.0); MEAN CORPUSCULAR HGB 30.6 pg (27.0-31.0); MEAN CORPUSCULAR HGB CONC 32.4 g/dl (33.0-37.0); PLATELET COUNT AUTOMATED 270 10*3/uL (130-400); RED BLOOD COUNT 4.05 10*6/uL (4.10-5.10); RED CELL DISTRI WIDTH 13.1 % (0-14.5); WHITE BLOOD COUNT 17.5 10*3/uL (4.8-10.8)
[2017-05-18 22:17] LABS: ALBUMIN 2.5 gm/dl (3.1-4.5); ALKALINE PHOSPHATASE 94 U/L (45-117); BUN 13 mg/dl (7-24); CHLORIDE 94 mmol/L (98-107); CREATININE 0.59 mg/dL (0.55-1.02); POTASSIUM 4.6 mmol/L (3.5-5.1); SGOT/AST 17 IU/L (3-35); SGPT/ALT 18 U/L (12-78); SODIUM 134 mmol/L (136-145); TOTAL PROTEIN 6.6 gm/dL (6.4-8.2)
[2017-05-18 22:22] LABS: TOTAL CELLS COUNTED 100 #CELLS
[2017-05-18 22:23] LABS: PLATELET SUFFICIENCY NORMAL (NORMAL)
--- NOTE | 2017-05-18 22:30 | NUR ---
GTUBE PATENT. MEDICATIONS AND FLUSHES TOLERATED WITHOUT DIFFICULTY. PLACEMENT VERIFIED WITH 30ML AIR BOLUS WITH AUSCULTATION. HOB ELEVATED. PATIENT CONTINUES WITH NPO DIETARY STATUS. WOUND TO COCCYX MEASURING 3.2CM X 2.0 CM X 2.5CM WITH UNDERMINING AT 3 OCLOCK OF 7CM AND 6 O'CLOCK AT 3.5CM. PALM GUARD TO LEFT HAND. EXCORIATION AND CHAFING TO GROIN AND BILATERAL BUTTOCKS WITH CALAZIME CREAM APPLIED. PATIENT CONTINUES TO BE MUTE THROUGHOUT ASSESSMENT. PATIENT CONTINUES TO BE TURNED AND REPOSITIONED
[2017-05-18 23:47] VITALS: BP 142/74
--- NOTE | 2017-05-19 05:39 | NUR ---
DR ANDERSEN UPDATED WITH PATIENT WITH EPISODE OF FOUL SMELLING, LOOSE STOOL X 1. ORDER TO OBTAIN STOOL SPECIMEN FOR C-DIFF AND URINE SPECIMEN OBTAINED AGAIN FOR URINALYSIS. STOOL AND URINE OBTAINED AND SENT TO LAB
[2017-05-19 05:56] LABS: BILIRUBIN NEGATIVE (NEGATIVE); BLOOD NEGATIVE (NEGATIVE); CLARITY CLEAR (CLEAR); COLOR YELLOW (YELLOW); GLUCOSE NEGATIVE (NEGATIVE); KETONE NEGATIVE (NEGATIVE); LEUKO ESTERASE 1+ (NEGATIVE); NITRITE NEGATIVE (NEGATIVE); SPECIFIC GRAVITY <= 1.005 (1.005-1.030); UROBILINOGEN 0.2 E.U./dl (0.2-1.0)
--- NOTE | 2017-05-19 07:27 | NUR ---
SPOKE WITH FRAN MOLINA,INFECTION CONTROL REGARDING PT HAVING DIARRHEA AND BEING ABMITTED ON 05/12 TO A DIFFERENT HOSPITAL FOR +C-DIFF. PER FRAN, WE CANNOT TAKE CARE OF A PT WITH C-DIFF ON THIS UNIT. ADVISED FRAN THAT A STOOL SAMPLE WAS SENT THIS AM BUT THE PT HAS ACTIVE DIARRHEA. PER FRAN NOTIFY
[2017-05-19 07:34] LABS: BACTERIA 2+
--- NOTE | 2017-05-19 07:34 | NUR ---
NOTIFIED OF CONVERSATION WITH INFECTION CONTROL PER CONSULT HOSPITALIST. NOTIFIED OF PT HAVING DIARRHEA AND BEING ADMITTED TO [facility] ON 05/12 FOR +C-DIFF. PER HE WILL CALL BACK.
--- NOTE | 2017-05-19 07:39 | NUR ---
CALLED QUESTIONING THIS NURSE REGARDING PT. ASKING IF PT HAS HAD DIARRHEA ADVISED THAT PT HAS HAD A LARGE AMOUNT OF DIARRHEA THIS AM. PER SHE WILL BE UP TO SEE THE PT.
[2017-05-19 07:58] LABS: VITAMIN D, 25-HYDROXY 28.9 ng/mL (30-100)
[2017-05-19 08:01] VITALS: BP 136/66
[2017-05-19 08:10] LABS: CHOLESTEROL 135 mg/dL (<200); HDL CHOLESTEROL 46 mg/dl (40-60); LDL CHOLESTEROL 63 mg/dL (9-159); TRIGLYCERIDES 132 mg/dl (<150); VLDL CHOLESTEROL 26 mg/dL (6-40)
[2017-05-19 08:22] LABS: THYROID STIM HORMONE (HS) 0.873 uIU/ml (0.358-4.75)
[2017-05-19 08:32] LABS: DIGOXIN < 0.06 ng/ml (0.8-2.0)
--- NOTE | 2017-05-19 10:00 | NUR ---
SPOKE WITH AT [phone] NOTIFED HIM THAT INFECTION CONTROL DOES WANT THIS PT MOVED. PER THEY ARE STILL WAITING ON TO ARRIVE HERE.
--- NOTE | 2017-05-19 11:05 | NUR ---
[facility] DIRECTOR SPOKE WT PER TRANSFER/DISCHARGE PT TO [address] HERNANDES , ADVISED HIM PT IS BEING DISCAHRGED TO 5TH FLOOR, MED REC NEEDS COMPLETED.
--- NOTE | 2017-05-19 11:45 | NUR ---
PT DISCHARGED TO RM 526. NOTIFIED THAT I AM UNABLE TO COMPLETED DISCHARGE PACKET AT THIS TIME, MED REC IS NOT COMPLETED.
--- NOTE | 2017-05-19 12:54 | NUR ---
VERBAL CONSENT OBTAINED FROM TO CONTINUE ALL MEDICAL MEDS.
[2017-05-21 15:08] LABS: LEVETIRACETAM (KEPPRA) 716936 23.2 ug/mL (10.0-40.0)
== END 2017-05-19 11:45 | disposition short-term general hospital (02) | DRG 885 ==
LOC: 3N 15:55
PROVIDERS: Internal Medicine; ADMIT Psychiatry & Neurology Psychiatry
DX: F33.3 Major depressive disorder, recurrent, severe with psychotic symptoms (principal); N18.3 Chronic kidney disease, stage 3 (moderate); F01.50 Vascular dementia, unspecified severity, without behavioral disturbance, psychotic disturbance, mood disturbance, and anxiety; M86.9 Osteomyelitis, unspecified; E66.01 Morbid (severe) obesity due to excess calories; F23 Brief psychotic disorder; N31.9 Neuromuscular dysfunction of bladder, unspecified; I12.9 Hypertensive chronic kidney disease with stage 1 through stage 4 chronic kidney disease, or unspecified chronic kidney disease; E78.5 Hyperlipidemia, unspecified; F41.9 Anxiety disorder, unspecified; Z88.1 Allergy status to other antibiotic agents; Z86.73 Personal history of transient ischemic attack (TIA), and cerebral infarction without residual deficits; Z79.899 Other long term (current) drug therapy; Z68.35 Body mass index [BMI] 35.0-35.9, adult; Z93.1 Gastrostomy status

== ENCOUNTER 2017-05-19 11:17 | Inpatient (IN) | payer MEDICARE ==
[~2017-05-19] VITALS: Ht 154.9 cm; Wt 84.9 kg
--- NOTE | ~2017-05-19 | O ---
[place], [place] OPERATIVE NOTE NAME: KAILA CULP UNIT #: [id number] ROOM: 526 DOCTOR: YOLY LUGO,IRENA BIRTHDATE: [birth year] DOS: INDICATIONS: The patient has presented with multiple medical problems, among which has been leaking new PEG tube. The patient is totally dependent on PEG device. PROCEDURE IN DETAIL: The PEG tube migration was confirmed at the bedside. Anterior abdominal wall aseptically was prepped and existing PEG tube deflated and extracted and ____ tube size 20 was introduced into the ostomy site, inflated with 15 mL of normal saline, patency checked and anchors were secured. Additional straps were added from outside and PEG tube ready to be utilized. CT scan of the abdomen, otherwise the fistulous as detailed on the CT scan was noticed. Comprehensive metabolic panel with a potassium of 6.0 is known being managed. Urine culture greater than 100,000 antibiotic management is being done. PAST MEDICAL HISTORY: Hypertension, hyperlipidemia, C. diff colitis, bipolar disorder, anxiety, osteomyelitis and paranoia. PAST SURGICAL HISTORY: PEG history. SOCIAL HISTORY: Nonsmoker, nonalcohol consumer. FAMILY HISTORY: Noncontributory. ALLERGIES: CLINDAMYCIN. MEDICATIONS: List has been reviewed. All has been recognized. Consultation has been already dictated. IRENA FREDERICK MD CM:OPRECORD:OPERATIVE NOTE [id number] IRENA FREDERICK MD 05/21/[id number] interface
[~2017-05-19 11:17] MED LIST changes: +EXELON1 EACH T; +FEROSUL220 MG/51 GT; +FISH OIL 500 M1 EAC1 GT; +GOOD NEIGHBOR M25 M1 GT; +GOOD NEIGHBOR650 MG PO; +K-EFFERVESCENT25 MEQ GT; +KEPPRA100 MG/1 M GT; +METOPROLOL25 MG GT; +MULTIVITAMINS1 EAC5 GT; +NORCO 5-325 TA1 EACH GT; +PAXIL20 M1 PO; +PROTONIX40 M2 GT; +SIMVASTATIN40 MG PO; +VALPROIC ACI50 MG/ML PO; +VISTARIL50 MG GT; +ZYPREXA2.5 MG PO
[2017-05-19 12:00] VITALS: BP 151/85
--- NOTE | 2017-05-19 12:00 | NUR ---
Time: 1200 A 76 year old FEMALE admitted to under services of JACKIE PERES DO, Pt. arrived via OTHER from [facility]. Chief complaint: SEPSIS, STAGE 4 WOUND VIVEK ZIMMERMAN
[2017-05-19 12:15] VITALS: BP 132/57
[2017-05-19 13:30] VITALS: BP 151/85
--- NOTE | 2017-05-19 14:56 | NUR ---
Occupational Therapy order received when patient on [facility]. SHe was transferred to medical floor d/t sepsis and stage IV sacral decubiti management. Patient will require a new OT referral when able to participate in therapy. Thank you. Saira Todd OTR/l
[2017-05-19 16:00] VITALS: BP 152/82
--- NOTE | 2017-05-19 17:25 | NUR ---
PATIENT WAS TRASNFERRED FROM 3RD FLOOR TO 5TH D/T STAGE 4 PRESSURE SACRAL ULCER AND SEPSIS. NO PHYSICAL THERAPY EVALUATION AT THIS TIME D/T MEDICAL DECLINE. WILL NEED NEW ORDERS FOR A PHYSICAL THERAPY EVALUATION.
--- NOTE | 2017-05-19 17:49 | NUR ---
TUBE FEEDING STARTED. CALAZYME CREAM APPLIED TO PERINEUM.
[2017-05-19 20:00] VITALS: BP 139/71
--- NOTE | 2017-05-19 20:30 | NUR ---
PATIENT AROUSES EASILY FOR ASSESSMENT. PATIETN IS ORIENTED TO SELF AND PLEASANTLY CONFUSED. LUNGS ARE DIMINISHED THROUGHOUT LUNGFIELDS ARE DIMINISHED THROUGHOUT LUNGFIELDS. ROOM AIR. ABDOME IS SOFT, PEG TUBE ASYMPTOMATIC, PATENT AND FEEDING RUNNING AT THIS TIME. TRACE EDEMA TO BLE, PPP. NO S/S OF PAIN OR DISCOMFORT. CALL LIGHT IS IN REACH.
[2017-05-20] VITALS: BP 154/86
--- NOTE | 2017-05-20 03:14 | NUR ---
PATIENT STATES OVER AND OVER AGAIN "I DON'T FEEL GOOD. " " I DON'T FEEL GOOD". 1:1 WITH PATIENT INEFFECTIVE PATIETN OE SNOT OFFER ANY FURTHER INFORMATION OTHER THAN THAT SHE DOES NOT FEEL FOOD, OVER AND OVER AGAIN. PRN MORPHINE AND ZOFRAN GIVEN AT THIS TIME. CALL LIGHT IS IN REACH. BED ALARM INTACT.
--- NOTE | 2017-05-20 04:00 | NUR ---
PATIENT RESTING IN BED WITH EYES CLOSED BILATERALLY. RESPIRATIONS ARE EASY AND REGULAR. O2 INTACT VIA NASAL CANNULA. NO S/S OF PAIN OR DISCOMFORT. MORPHINE AND ZOFRAN EFFECTIVE AT THIS TIME. BED ALARM INTACT . CALL LIGHT IS IN REACH.
[2017-05-20 06:39] LABS: HEMATOCRIT 43.9 % (37.0-47.0); MEAN CORPUSCULAR HGB 30.3 pg (27.0-31.0); MEAN CORPUSCULAR HGB CONC 31.9 g/dl (33.0-37.0); MEAN PLATELET VOLUME 10.1 fl (9.6-12.3); PLATELET COUNT AUTOMATED 320 10*3/uL (130-400); RED BLOOD COUNT 4.62 10*6/uL (4.10-5.10); RED CELL DISTRI WIDTH 13.1 % (0-14.5)
[2017-05-20 06:43] LABS: BUN 12 mg/dl (7-24); CHLORIDE 93 mmol/L (98-107); CREATININE 0.68 mg/dL (0.55-1.02); MAGNESIUM 2.3 mg/dL (1.5-2.1); PHOSPHOROUS 3.7 mg/dL (2.5-4.9); POTASSIUM 4.4 mmol/L (3.5-5.1); SODIUM 135 mmol/L (136-145)
[2017-05-20 07:17] LABS: TOTAL CELLS COUNTED 100 #CELLS
[2017-05-20 07:18] LABS: PLATELET SUFFICIENCY NORMAL (NORMAL)
[2017-05-20 08:00] VITALS: BP 138/86
--- NOTE | 2017-05-20 10:00 | NUR ---
UZMA ABREU NOTIFIED OF YELLOW DRAINAGE NOTED TO PEG SITE, WELL EXCORIATION, PT APPEARS TO HAVE PULLED PEG TUBE IN PAST, PEG SITE APPEARS WIDENED. NO NEW ORDERS AT PRESENT.
--- NOTE | 2017-05-20 11:50 | NUR ---
DR MARQUES NOTIFIED OF CONSULT. STATES HE WILL SEE PT TOMORROW.
[2017-05-20 12:00] VITALS: BP 120/65; BP 140/88
--- NOTE | 2017-05-20 12:15 | NUR ---
PT COMPLAINING OF NAUSEA, SAYING SHE JUST DOESN'T FEEL GOOD. PT MOANING IN PAIN WHEN TURNING HER. MEDICATED WITH MORPHINE AND ZOFRAN PER PRN ORDER. WILL MONITOR FOR EFFECTIVENESS.
--- NOTE | 2017-05-20 13:30 | NUR ---
PT STATING SHE IS FEELING MUCH BETTER. PREVIOUSLY GIVEN MEDICATIONS EFFECTIVE.
--- NOTE | 2017-05-20 14:30 | NUR ---
PT PLACED ON NIGHT CLEANER PER ORDER.
--- NOTE | 2017-05-20 15:15 | NUR ---
UZMA ABREU CNP NOTIFIED OF CRITICAL LACTIC ACID LEVELS OF 2.3. NO NEW ORDERS AT THIS TIME.
[2017-05-20 16:00] VITALS: BP 149/72
--- NOTE | 2017-05-20 17:56 | NUR ---
WOUND CARE DONE AT THIS TIME TO COCCYX WOUND PER ORDER. PT TOLERATED WELL.
--- NOTE | 2017-05-20 17:57 | NUR ---
UZMA ABREU, EVELYNE NOTIFIED OF CRITICAL LACTIC ACID LEVELS, STATES TO ORDER ANOTHER LACTIC ACID AND REFLEX.
--- NOTE | 2017-05-20 19:50 | NUR ---
PATIENT IS AWAKE, AND ALERT. PATIENT MOANS WITH REPOSITIONING. DOES OT ANSWER ANY QUESTIONS. LUNGS ARE DIMINISHED THROUGHOUT LUNGFIELDS. 02 VIA NASAL CANNULA AT 3LPM. ABDOMEN IS SOFT AND NON-TENDER UPON PALPATION, BOWEL SOUNDS ARE NORMOACTIVE X 4 QUADS. GENERALIZED ANASACA TO ALL EXTREMTIIES. DRESSING TO COCCYX WOUND IS CLEAN, DRY AND INTACT. FIBERSOURCE INFUSING AT THIS TIME. PER ORDERS . BED ALARM INTACT .
[2017-05-20 20:00] VITALS: BP 142/77
--- NOTE | 2017-05-20 20:30 | NUR ---
DR. LOYA CALLED AND MADE AWARE OF PATIENTS CRITICAL LACTIC ACID AT 3.6.
--- NOTE | 2017-05-20 20:33 | NUR ---
PATIENT MOANING AND STATING THAT SHE CASTAÑEDA SNOT FEEL GOOD. UNABLE TO PROVIDE DETAILS OF FEELING UNWELL. PRN MORPHINE AND ZOFRAN GIVEN AT THIS TIME. CALL LIGHT IS IN REACH.
--- NOTE | 2017-05-20 21:33 | NUR ---
PATIENT RESTING IN BED WITH EYES CLOSED BILATERALLY. RESPIRATIONS ARE EASY AND REGULAR. NO S/S OF PAIN OR DISCOMFORT. MORPHINE AND ZOFRAN EFFECTIVE AT THIS TIME. CALL LIGHT IS IN REACH.
--- NOTE | 2017-05-20 22:33 | NUR ---
DR. UMANA MADE AWARE OF PATIENTS CRITICAL LACTIC ACID AT 2.7. THIS IS TRENDING DOWN FROM EARLIER RESULTS.
[2017-05-21] VITALS: BP 107/44
--- NOTE | 2017-05-21 02:57 | NUR ---
PATIENT YELLING OUT , CALLING FOR OKSANA. 1:1 WITH PATIENT INEFFECTIVE. PATIENT GIVEN BED BATH AT THIS TIME. STILL MOANING. PRN MORPHINE AND ZOFRAN GIVEN. CALL LIGHT IS IN REACH.
--- NOTE | 2017-05-21 03:38 | NUR ---
PATIENT RESTING IN BED WITH EYES CLOSED BILATERALLY. RESPIRATIONS ARE EASY AND REGULAR. NO S/S OF PAIN OR DISCOMFORT. MORPHINE AND ZOFRAN EFFECTIVE AT THIS TIME. BED ALARM INTACT.
[2017-05-21 06:10] LABS: MEAN CORPUSCULAR HGB 30.9 pg (27.0-31.0); MEAN CORPUSCULAR HGB CONC 31.4 g/dl (33.0-37.0); MEAN PLATELET VOLUME 10.1 fl (9.6-12.3); PLATELET COUNT AUTOMATED 273 10*3/uL (130-400); RED BLOOD COUNT 3.43 10*6/uL (4.10-5.10); RED CELL DISTRI WIDTH 13.2 % (0-14.5); WHITE BLOOD COUNT 15.8 10*3/uL (4.8-10.8)
--- NOTE | 2017-05-21 06:11 | NUR ---
PATIENT RESTING IN BED WITH EYES CLOSED BILATERALLY. RESPIRATIONS ARE EASY AND REGULAR. O2 VIA NASAL CANNULA INTACT AT THIS TIME. BED ALARM INTACT. PATIENT REPOSITIONED FOR COMFORT AT THIS TIME.
[2017-05-21 06:18] LABS: HEMATOCRIT 33.8 % (37.0-47.0); HEMOGLOBIN 10.6 g/dl (12.0-16.0); MEAN CELL VOLUME 98.5 fl (81.0-99.0)
[2017-05-21 06:46] LABS: PLATELET SUFFICIENCY NORMAL (NORMAL); TOTAL CELLS COUNTED 100 #CELLS
[2017-05-21 08:00] VITALS: BP 146/70
--- NOTE | 2017-05-21 09:02 | NUR ---
IN TO ASSESS PT'S WOUND AT THIS TIME WITH UZMA ABREU NP AND [facility]ELES WOUND CARE NURSE. FOUL ODOR NOTED TO PT'S WOUND, WOUND CULTURE PERFORMED AT THIS TIME. WOUND REDRESSED AND PACKED PER ORDER. PT YELLING OUT AT AND AGITATED AT THIS TIME. REPOSITIONED PT FOR COMFORT. HEAD OF BED ELEVATED TO 30 DEGREES, BED ALARM ON, TUBE FEEDING RESUMED, PER ORDER. CALL LIGHT WITHIN REACH.
--- NOTE | 2017-05-21 09:37 | NUR ---
PT YELLING OUT AND MOANING SAYING "I JUST DONT FEEL GOOD" PT UNABLE TO TELL ME EXACTLY WHAT IS BOTHERING HER, BUT PT WAS MOANING WHEN WOUND CARE WAS BEING PERFORMED. MEDICATED WITH MORPHINE AND ZOFRAN PER PRN ORDER. WILL MONITOR FOR EFFECTIVENESS.
--- NOTE | 2017-05-21 10:01 | NUR ---
PT DOWN FOR CT AT THIS TIME.
--- NOTE | 2017-05-21 10:25 | NUR ---
KAILA CULP [id number] Please refer to the physician's history and physical for past medical history, comorbid conditions, and allergies. Diagnosis: BREIF PSYCHOTIC DISORDER, DIARRHEA Indra Score: 10,VERY HIGH RISK WOUND DESCRIPTIONS: Location of the wound: coccyx Type of wound: stage 4 Thickness: Full Size: 2.8cm x 1.0cm x 4.0cm Tunnelin.3cm at 3 o'clock, 6.0cm at 6 o'clock Undermining: none Sinus Tract: none Presence of Exudate: serosanguineous Amount: Moderate Color: Yellow Odor: Foul Periwound Skin Appearance: Normal Wound edges: epibole Pain (associated with wound): tender to touch How does patient state this happened? pt unable to state how this happened Evaluate patient g-tube site. Purluent drainage noted. foul odor noted. Surface the patient is resting on: Isoflex SKIN PREVENTION RECOMMENDATION: 1. Pressure redistribution support surface as appropriate 2. Elevate heels 3. Remove boots/TEDS every shift and reapply 4. Head of bed 30 degrees as tolerated 5. Assess nutrition and hydration 6. Manage moisture 7. Avoid the use of containment devices while in bed 8. Use absorptive products on surfaces limit layers of linens on bed 9. Turn and reposition every 1-2 hours in bed and every 1 hour in chair as tolerated 10. Weight shifts every 15 minutes while up in chair 11. Offloading with pillows or device to keep heels elevated off bed 12. Monitor skin at least every shift 13. Inspect under medical devices twice a day WOUND TREATMENT RECOMMENDATIONS: Consult surgery for coccyx wound. Consult ID for coccyx wound. Consult GI for peg tube. Culture coccyx and peg tube site due to foul odor noted. Continue current wound care order until seen by surgery and await CT of pelvis results.
--- NOTE | 2017-05-21 11:06 | NUR ---
SPOKE WITH DR MARTÍNEZ'S OFFICE REGARDING NEW CONSULT.
--- NOTE | 2017-05-21 11:08 | NUR ---
DR BAUMAN NOTIFIED OF NEW CONSULT.
--- NOTE | 2017-05-21 11:10 | NUR ---
DR PUTNAM NOTIFIED OF NEW CONSULT FOR DR FREDERICK. STATES THEY WILL BE UP TO SEE PT.
[2017-05-21 11:23] LABS: ALBUMIN 2.6 gm/dl (3.1-4.5); ALKALINE PHOSPHATASE 91 U/L (45-117); BUN 20 mg/dl (7-24); CHLORIDE 102 mmol/L (98-107); CREATININE 0.77 mg/dL (0.55-1.02); SGOT/AST 68 IU/L (3-35); SGPT/ALT 35 U/L (12-78); SODIUM 137 mmol/L (136-145); TOTAL PROTEIN 6.4 gm/dL (6.4-8.2)
[2017-05-21 12:00] VITALS: BP 120/70
--- NOTE | 2017-05-21 12:04 | NUR ---
DR PICKARD HERE TO SEE PT FOR INFECTIOUS DISEASE.
--- NOTE | 2017-05-21 12:20 | NUR ---
Called and spoke with of this patient, discussed possible LTACH. He stated numerous times she was sent here for Dr. Ramirez and was quickly moved to the medical side with a UTI. He was very aggitated about the LTACH issues and stated she has had this wound for 2 years and has been treated by acute care numerous times. He stated he was told it will not get any better. 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 stated he is going to call [facility] and discuss with them, then he will call me back. Notified Karen TORREZP. Will follow
--- NOTE | 2017-05-21 13:00 | NUR ---
WOUND CARE PERFORMED PER ORDER AT THIS TIME WITH DR BAUMAN.
--- NOTE | 2017-05-21 15:02 | NUR ---
DR FREDERICK HERE AT THIS TIME. HE PULLED PT'S PEG TUBE AND REPLACED WITH NEW TUBE WITH ANCHOR. PT TOLERATED WELL.
--- NOTE | 2017-05-21 15:20 | NUR ---
DR PUTNAM UP AT THIS TIME TO FINISH SECURING PEG TUBE. STATES THAT PEG IS READY TO USE AND IS IN PROPER POSITION. APPLIED STOPCOCK AND RESIDUAL NOTED. PEG FEEDING RESUMED.
[2017-05-21 16:00] VITALS: BP 113/65
--- NOTE | 2017-05-21 19:21 | NUR ---
PATIENT RESTING IN BED , AROUSES EASILY FOR ASSESSMENT. MINIMAL VERBAL INTERACTION, SMILING. LUNGS ARE DIMINISHED , O2 VIA NASAL CANNULA AT 3LPM. ABDOMENIS DISTENDED, NOMROACTIVE BOWEL SOUNDS, PEG SITE AYMPTOMATIC, TUBE FEED INFUSING. VÁSQUEZ PATENT FOR DIVYA COLORED URINE. GENERALIZED EDEMA TO ALL EXTREMITIES. PATIENT SHOWS NO S/S OF PAIN OR DISCOMFORT AT THE PRESENT TIME. BED ALARM INTACT.
[2017-05-21 20:00] VITALS: BP 152/65
[2017-05-22] VITALS: BP 142/89
--- NOTE | 2017-05-22 | NUR ---
SLEEPING. NO DISTRESS NOTED. RESPIRATIONS EASY. LUNGS DIMINISHED. PULSE OX 96% 1L. PEG TUBE PATENT AND INTACT WITH FEEDING MAINTAINED PER ORDER. PLACEMENT VERIFIED VIA AIR BOLUS, NO RESIDUAL NOTED. IV FLUIDS INFUSING PER ORDER. CALL LIGHT WITHIN REACH. BED ALARM MAINTAINED FOR SAFETY
--- NOTE | 2017-05-22 06:00 | NUR ---
RESTED THROUGHOUT NIGHT, NO DISTRESS NOTED. O2 IN USE. PEG FEEDING MAINTAINED, PATIENT TOLERATING. BED ALARM IN PLACE FOR SAFETY
[2017-05-22 06:28] LABS: HEMATOCRIT 34.3 % (37.0-47.0); HEMOGLOBIN 10.9 g/dl (12.0-16.0); MEAN CELL VOLUME 96.6 fl (81.0-99.0); MEAN CORPUSCULAR HGB 30.7 pg (27.0-31.0); MEAN CORPUSCULAR HGB CONC 31.8 g/dl (33.0-37.0); MEAN PLATELET VOLUME 9.6 fl (9.6-12.3); PLATELET COUNT AUTOMATED 256 10*3/uL (130-400); RED BLOOD COUNT 3.55 10*6/uL (4.10-5.10); WHITE BLOOD COUNT 12.6 10*3/uL (4.8-10.8)
[2017-05-22 06:43] LABS: ALBUMIN 2.3 gm/dl (3.1-4.5); ALKALINE PHOSPHATASE 87 U/L (45-117); BUN 16 mg/dl (7-24); CHLORIDE 100 mmol/L (98-107); CREATININE 0.68 mg/dL (0.55-1.02); SGOT/AST 36 IU/L (3-35); SGPT/ALT 33 U/L (12-78); SODIUM 136 mmol/L (136-145); TOTAL PROTEIN 5.9 gm/dL (6.4-8.2)
[2017-05-22 07:00] LABS: POTASSIUM 4.5 mmol/L (3.5-5.1)
[2017-05-22 07:04] LABS: PLATELET SUFFICIENCY NORMAL (NORMAL); TOTAL CELLS COUNTED 100 #CELLS
[2017-05-22 08:00] VITALS: BP 118/76
--- NOTE | 2017-05-22 09:37 | NUR ---
CHECKED PEG PLACEMENT BY AUSCULTATING AIR BOLUS, NO RESIDUAL ASPIRATED, ALL MEDS CRUSHED AND AND ADMINISTERED VIA PEG ORDERED D/T NPO STATUS. HOB UP 30 DEGREES, FEEDING WITH FIBERSOURCE AT 65ML/HOURS CONTINUOUS IS RUNNING/INTACT. PEG SITE REDDENED/DENUDED WITH LEAKING AT SITE. CLEANSED SITE WITH STERILE WATER AND DRIED WITH GAUZE. APPLIED SKIN BARRIER CREAM AND DRY STERILE DRAIN SPONGE DRESSING. PATIENT HAD SOME PAIN/AGITATION WITH CLEANING OF THE SITE.
[2017-05-22 12:00] VITALS: BP 152/50
[2017-05-22 16:00] VITALS: BP 130/52
[2017-05-22 20:00] VITALS: BP 138/64
--- NOTE | 2017-05-22 20:30 | NUR ---
CONTRACTED. SLEEPING, NO DISTRESS NOTED. RESPIRATIONS EASY. LUNGS DIMINISHED. PULSE OX 96% 1L. ABD SOFT WITH NORMOACTIVE BOWEL SOUNDS. PEG TUBE PATENT AND INTACT. PLACEMENT VERIFIED VIA AIR BOLUS. NO RESIDUAL NOTED. FEEDING MAINTAINED WITH PATIENT TOLERATING. GENERALIZED EDEMA. BILATERAL TEDS AND HEEL PROTECTORS IN PLACE. VÁSQUEZ PATENT. IV FLUIDS INFUSING PER ORDER. CALL LIGHT WITHIN REACH. BED ALARM MAINTAINED FOR SAFETY
[2017-05-23] VITALS: BP 157/50
--- NOTE | 2017-05-23 | NUR ---
SLEEPING. NO DISTRESS NOTED. RESPIRATIONS EASY. VSS. PEG FEEDING AND IV FLUIDS MAINTAINED PER ORDER. CALL LIGHT WITHIN REACH. BED ALARM MAINTAINED FOR SAFETY
--- NOTE | 2017-05-23 06:00 | NUR ---
SLEPT THROUGHOUT NIGHT WITH NO DISTRESS NOTED. RESPIRATIONS EASY. PEG FEEDING AND IV FLUIDS MAINTAINED. CALL LIGHT WITHIN REACH. BED ALARM MAINTAINED FOR SAFETY
[2017-05-23 06:26] LABS: HEMATOCRIT 35.4 % (37.0-47.0); HEMOGLOBIN 11.3 g/dl (12.0-16.0); MEAN CELL VOLUME 96.2 fl (81.0-99.0); MEAN CORPUSCULAR HGB 30.7 pg (27.0-31.0); MEAN CORPUSCULAR HGB CONC 31.9 g/dl (33.0-37.0); MEAN PLATELET VOLUME 9.9 fl (9.6-12.3); PLATELET COUNT AUTOMATED 258 10*3/uL (130-400); RED BLOOD COUNT 3.68 10*6/uL (4.10-5.10); RED CELL DISTRI WIDTH 12.8 % (0-14.5); WHITE BLOOD COUNT 14.7 10*3/uL (4.8-10.8)
[2017-05-23 06:43] LABS: BUN 13 mg/dl (7-24); CHLORIDE 101 mmol/L (98-107); CREATININE 0.67 mg/dL (0.55-1.02); POTASSIUM 4.7 mmol/L (3.5-5.1); SODIUM 138 mmol/L (136-145)
[2017-05-23 07:09] LABS: PLATELET SUFFICIENCY NORMAL (NORMAL); TOTAL CELLS COUNTED 100 #CELLS
[2017-05-23 08:00] VITALS: BP 120/51
[2017-05-23 12:00] VITALS: BP 124/46
--- NOTE | 2017-05-23 12:33 | NUR ---
MEDICATED WITH PRN TYLENOL LIQUID VIA PEG TUBE FOR TEMP. 100.4.
--- NOTE | 2017-05-23 15:39 | NUR ---
IV SITE TO RIGHT ARM INFILTRATED, SITE EDEMATOUS, NO BLOOD RETURN. DISCONTINUED SITE AND ELEVATED THE ARM. AFTER MULTIPLE ATTEMPTS BY MULTIPLE RN'S, UNABLE TO OBTAIN IV ACCESS. DR. GE NOTIFIED.
[2017-05-23 16:00] VITALS: BP 125/54
--- NOTE | 2017-05-23 17:46 | NUR ---
DR. SCHREIBER SPOKE WITH PATIENT'S RE: CENTRAL LINE PLACEMENT D/T PERIPHERAL IV ACCESS NOT OBTAINABLE AT THIS TIME. PATIENT'S DECIDED THAT BEST PLAN IS TO HAVE PICC LINE INSERTED TOMORROW.
[2017-05-23 20:00] VITALS: BP 155/73
--- NOTE | 2017-05-23 21:02 | NUR ---
PEG TUBE PLACEMENT CHECKED AT THIS TIME VIA AIR BOLUS. NO RESIDUAL OBSERVED. MEDICATIONS CRUSHED AND ADMINISTERED THROUGH PEG TUBE WITH 200 ML OF FREE WATER. PATIENT TOLERATED WELL. TUBE FEED RESUMED PER ORDER. NEW BAG OF FIBERSOURCE HUNG. HOB LEFT ELEVATED AT 30 DEGREES. BED LEFT LOCKED IN LOW POSITION, BED ALARM INTACT, CALL LIGHT IN REACH.
--- NOTE | 2017-05-23 22:52 | NUR ---
SPOKE TO AT THIS TIME REGARDING PATIENT'S IV ANTIBIOTICS/NO IV ACCESS. DISCUSSED CULTURE & SENSITIVITY FOR WOUND AND URINE CULTURES, ALONG WITH CURRENT ABX ORDERED. INSTRUCTED TO CHANGE IV ZYVOX TO PO (THROUGH PEG TUBE) UNTIL PICC LINE CAN BE PLACED.
[2017-05-24] VITALS: BP 116/54
--- NOTE | 2017-05-24 01:11 | NUR ---
PATIENT'S POX 90% ON ROOM AIR. O2 APPLIED VIA NC AT 1 LITER PER MINUTE. PATIENT'S POX HIGH 96%. WILL CONTINUE TO MONITOR.
--- NOTE | 2017-05-24 01:32 | NUR ---
PATIENT BATHED AT THIS TIME, BED LINENS ALSO CHANGED. DRESSING TO COCCYX D/I. WILL CONTINUE TO MONITOR. HOB ELEVATED 30 DEGREES, TUBE FEEDING RESUMED. BED LOCKED IN LOW POSITION, BED ALARM INTACT, CALL LIGHT IN REACH.
--- NOTE | 2017-05-24 04:02 | NUR ---
PATIENT PLACED ON 2L NC. POX 91% ON 1L NC. POX 97% AT THIS TIME. WILL CONTINUE TO MONITOR. CALL LIGHT WITHIN REACH.
[2017-05-24 06:51] LABS: BASO # 0.1 10*3/uL (0.0-0.1); BASO % 0.7 % (0.0-1.0); EOS # 0.3 10*3/uL (0.0-0.4); EOS % 2.6 % (1.0-4.0); HEMATOCRIT 37.3 % (37.0-47.0); HEMOGLOBIN 11.8 g/dl (12.0-16.0); LYMPH # 2.2 10*3/uL (1.3-4.4); LYMPH % 17.9 % (27.0-41.0); MEAN CELL VOLUME 96.1 fl (81.0-99.0); MEAN CORPUSCULAR HGB 30.4 pg (27.0-31.0); MEAN CORPUSCULAR HGB CONC 31.6 g/dl (33.0-37.0); MEAN PLATELET VOLUME 9.7 fl (9.6-12.3); MONO # 1.3 10*3/uL (0.1-1.0); MONO % 10.4 % (3.0-9.0); NEUT # 8.2 10*3/uL (2.3-7.9); NEUT % 67.2 % (47.0-73.0); PLATELET COUNT AUTOMATED 283 10*3/uL (130-400); RED BLOOD COUNT 3.88 10*6/uL (4.10-5.10); WHITE BLOOD COUNT 12.2 10*3/uL (4.8-10.8)
--- NOTE | 2017-05-24 07:00 | NUR ---
PATIENT'S BED SOILED AT THIS TIME. PATIENT CLEANED UP, NEW BED LINENS PROVIDED. DRESSING TO COCCYX WOUND ALSO CHANGED PER ORDER. PATIENT TOLERATED WELL. BED LEFT LOCKED IN LOW POSITION, HEAD ELEVATED 30 DEGREES, BED ALARM INTACT, TUBE FEEDING RESTARTED, AND CALL LIGHT IN REACH. WILL MONITOR.
[2017-05-24 07:25] LABS: BUN 16 mg/dl (7-24); CHLORIDE 99 mmol/L (98-107); CREATININE 0.66 mg/dL (0.55-1.02); POTASSIUM 4.8 mmol/L (3.5-5.1); SODIUM 136 mmol/L (136-145)
[2017-05-24 08:00] VITALS: BP 130/86
--- NOTE | 2017-05-24 08:00 | NUR ---
SHIFT ASSESSMENT COMPLETE. PATIENT DID NOT AKNOWLEDGE NURSE. WOULD NO OPEN EYES. NO SIGNS OF DISTRESS NOTED. BED IN LOW POSITION. CALL LIGHT WITHIN REACH.
--- NOTE | 2017-05-24 11:40 | NUR ---
OXY IR GIVEN PER PATIENT REQUEST FOR ABDOMINAL PAIN RATING A 6/10.
[2017-05-24 11:59] VITALS: BP 124/50
--- NOTE | 2017-05-24 12:42 | NUR ---
Spoke with of patient. He stated patient has been in [facility] in [place] in the past and has agreed for her to go there again. Contacted [facility] and faxed referral. Patient has been accepted and can go when ready for discharge.
--- NOTE | 2017-05-24 14:15 | NUR ---
patient is being discharged to [facility] in [facility]. Transporation scheduled for 6pm with [facility]. LTACH, nursing and family notified.
[2017-05-24] MEDS ORDERED: MERREM IV1 GM IV (14:48)
[2017-05-24] MEDS ORDERED: REMEDY CALAZIME4 GM T (14:48)
[2017-05-24] MEDS ORDERED: LINEZOLID600 MG PEG (14:48)
[2017-05-24] MEDS ORDERED: LOPERAMIDE1 MG/5 M1 JT (14:48)
[2017-05-24 16:00] VITALS: BP 138/64
--- NOTE | 2017-05-24 17:45 | NUR ---
DISCHARGED TO [facility]IA [facility].
== END 2017-05-24 17:45 | DRG 393 ==
LOC: 5E 11:17
PROVIDERS: Internal Medicine; Internal Medicine Nephrology; Registered Nurse; ADMIT Internal Medicine
PROC: 0D20XUZ Change Feeding Device in Upper Intestinal Tract, External Approach (ICD-10-PCS; principal; 2017-05-19)
PROC: 02HV33Z Insertion of Infusion Device into Superior Vena Cava, Percutaneous Approach (ICD-10-PCS; 2017-05-24)
DX: K94.29 Other complications of gastrostomy (principal); A41.9 Sepsis, unspecified organism; G93.41 Metabolic encephalopathy; L89.154 Pressure ulcer of sacral region, stage 4; E44.0 Moderate protein-calorie malnutrition; N18.3 Chronic kidney disease, stage 3 (moderate); F33.3 Major depressive disorder, recurrent, severe with psychotic symptoms; N30.00 Acute cystitis without hematuria; F23 Brief psychotic disorder; E87.1 Hypo-osmolality and hyponatremia; E87.8 Other disorders of electrolyte and fluid balance, not elsewhere classified; F01.50 Vascular dementia, unspecified severity, without behavioral disturbance, psychotic disturbance, mood disturbance, and anxiety; Y83.8 Other surgical procedures as the cause of abnormal reaction of the patient, or of later complication, without mention of misadventure at the time of the procedure; R19.7 Diarrhea, unspecified; E83.41 Hypermagnesemia; R73.9 Hyperglycemia, unspecified; E78.5 Hyperlipidemia, unspecified; I12.9 Hypertensive chronic kidney disease with stage 1 through stage 4 chronic kidney disease, or unspecified chronic kidney disease; E66.9 Obesity, unspecified; Z88.1 Allergy status to other antibiotic agents; Z68.35 Body mass index [BMI] 35.0-35.9, adult; Z86.73 Personal history of transient ischemic attack (TIA), and cerebral infarction without residual deficits; Z79.899 Other long term (current) drug therapy